=== PATIENT | female | born 1990 | race Two or more races ===

== ENCOUNTER 2016-12-08 13:20 | Emergency (ER) | payer OTHER ==
[2016-12-08 13:24] VITALS: BP 124/83; PULSE 68; TEMP 98.2; BMI 20.8
--- NOTE | 2016-12-08 14:48 | PDOC ---
History of Present Illness - General Chief Complaint: Wound Stated Complaint: VAGINAL PROBLEM/BOIL Time Seen by Provider: 12/08/16 13:31 History Source: Patient Exam Limitations: No Limitations - History of Present Illness Initial Comments: 12/08/16 15:07 Patient is a 26 y/o female, no significant medical history. Present to the ER with painful mass to the left side of her vagina. Patient reports that she had this mass for three years since the of her daughter. Recently increased in size. No fever, pain is 5/10. Past Medical History: Denies. Allergies: No known allergies Medications: None Family History: Non-contributory Social History: Denies smoking, alcohol use, or IVDU Review of Systems GENERAL/CONSTITUTIONAL: No fever or chills. No weakness. No weight change. HEAD, EYES, EARS, NOSE AND THROAT: No change in vision. No ear pain or discharge. No sore throat. CARDIOVASCULAR: No chest pain or shortness of breath. RESPIRATORY: No cough, wheezing, or hemoptysis. GASTROINTESTINAL: No nausea, vomiting, diarrhea or constipation. No rectal bleeding. GENITOURINARY: No dysuria, frequency, or change in urination. MUSCULOSKELETAL: No joint or muscle swelling or pain. No neck or back pain. SKIN : No rash or easy bruising. Painful palpable mass to the right vulva. Physical Exam: GENERAL: The patient is awake, alert, and fully oriented, in no acute distress. LUNGS: Breath sounds equal, clear to auscultation bilaterally. No wheezes, and no crackles. HEART: Regular rate and rhythm, normal S1 and S2 without murmur, rub or gallop. ABDOMEN: Soft, nontender, normoactive bowel sounds. No guarding, no rebound. No masses. No bruising or abrasions MUSCULOSKELETAL: Normal range of motion, no edema. No clubbing or cyanosis. No cords, erythema, or tenderness. No CVA Tenderness SKIN: [Warm, Dry, normal turgor, no rashes or lesions noted. Painful palpable mass to right vulva, consistent with Bartholin's cyst measuring approximate 7 cm in length and 6 cm in width. Area is not cellulitic. Painful to touch. Past History - Past Medical History Allergies/Adverse Reactions: Allergies Allergy/AdvReac Type Severity Reaction Status Date / Time No Known Allergies Allergy Verified 12/08/16 13:24 Home Medications: Ambulatory Orders Ibuprofen [Motrin] 400 mg PO TID #20 tablet 07/01/15 Clindamycin [Cleocin -] 300 mg PO TID #21 capsule 12/08/16 Oxycodone HCl/Acetaminophen [Percocet 5-325 mg Tablet] 1 tab PO Q6H #12 tablet MDD 4 12/08/16 Asthma: No Cancer: No Cardiac Disorders: No Diabetes: No HTN: No Seizures: No Thyroid Disease: No - Surgical History GI Surgery: Yes (umbilical hernia repair) - Reproductive History (#): 2 Para: 1 Cervical CA: No Dysfunctional Uterine Bleeding: No Ectopic : No Endometrial CA: No Polycystic Ovaries: No Therapeutic (s) & number: No Tubal Ligation: No Spontaneous : 0 - Immunization History Immunization Up to Date: Yes - Psycho/Social/Smoking Cessation Hx Anxiety: No Suicidal Ideation: No Smoking Status: Yes Smoking History: Never smoked Number of Cigarettes Smoked Daily: 0 Information on smoking cessation initiated: No Hx Alcohol Use: No Drug/Substance Use Hx: No Substance Use Type: None Hx Substance Use Treatment: No *Physical Exam - Vital Signs Last Vital Signs Temp Pulse Resp BP Pulse Ox 98.2 F 68 18 124/83 98 12/08/16 13:22 12/08/16 13:22 12/08/16 13:22 12/08/16 13:22 12/08/16 13:22 Procedures - Incision and Drainage I&D Site: Right: Bartholin Betadine cleansed: Yes Anesthesia: 1% Lidocaine Volume(ml): 3 Blade Size: 11 Attempts: 1 (area cleansed sterilely with Betadine, anesthetized using 1% lidocaine with good result. Small 1 cm incision made at the base of Bartholin's , Carrasco catheter inserted with good result. Approximately 47 mL of pustulant drainage was removed and culture was sent.) Medical Decision Making - Medical Decision Making 12/08/16 15:25 A/P: Patient with Bartholin's cyst, the procedure note. Called Dr. Villegas, patient to be seen at 11 AM tomorrow, wound culture sent, Clindamycin ordered, Percocet for pain I discussed the physical exam findings, ancillary test results and final diagnoses with the patient. I answered all of the patient's questions. The patient was satisfied with the care received and felt comfortable with the discharge plan and treatment plan. The patient will call follow-up and will return to the Emergency Department with any new, persistent or worsening symptoms. *DC/Admit/Observation/Transfer Diagnosis at time of Disposition: Bartholin cyst - Discharge Dispostion Admit: No - Prescriptions Prescriptions: Clindamycin [Cleocin -] 300 mg PO TID #21 capsule Oxycodone HCl/Acetaminophen [Percocet 5-325 mg Tablet] 1 tab PO Q6H #12 tablet MDD 4 - Referrals Referrals: Manfred Hartley MD [Primary Care Provider] - Sanford Villegas MD [Staff Physician] - (Tomorrow see Nadiya MAHAJAN [address] [facility] [phone] 11 am) - Patient Instructions Printed Discharge Instructions: Bartholin Gland Cyst Additional Instructions: 47 cc of pustulent drainage. Word Catheter inserted Culture sent Started on Clindamycin Started as the size of an egg.
== END 2016-12-08 15:04 | disposition home or self-care (01) ==
LOC: JERFT 13:20
PROC: 0U9LX0Z Drainage of Vestibular Gland with Drainage Device, External Approach (ICD-10-PCS; principal; 2016-12-08)
DX: N75.0 Cyst of Bartholin's gland (principal)
CPT/HCPCS: 87070; 87077; 87205; 99281-25

== ENCOUNTER 2018-05-26 15:05 | Emergency (ER) | payer OTHER ==
[2018-05-26 15:30] VITALS: BP 116/72; PULSE 98; TEMP 98.8; BMI 19.7
--- NOTE | 2018-05-26 15:42 | PDOC ---
History of Present Illness - General Chief Complaint: Cold Symptoms Stated Complaint: EARACHE, THROAT PAIN Time Seen by Provider: 05/26/18 15:32 History Source: Patient - History of Present Illness Initial Comments: 05/26/18 16:34 27 year old female with throat pain left sided neck pain x 1 weeks. reports no relief with nyquil / dayquil. denies NVD, abdominal pain denies fever /chills Past History - Past Medical History Allergies/Adverse Reactions: Allergies Allergy/AdvReac Type Severity Reaction Status Date / Time No Known Allergies Allergy Verified 05/26/18 15:27 Home Medications: Ambulatory Orders Amoxicillin Suspension - 500 mg PO BID #120 ml 05/26/18 Asthma: No Cancer: No Cardiac Disorders: No COPD: No Diabetes: No HTN: No Seizures: No Thyroid Disease: No Other medical history: DENIES. - Surgical History GI Surgery: Yes (umbilical hernia repair) - Reproductive History (#): 2 Para: 1 Cervical CA: No Dysfunctional Uterine Bleeding: No Ectopic : No Endometrial CA: No Polycystic Ovaries: No Therapeutic (s) & number: No Tubal Ligation: No Spontaneous : 0 - Immunization History Immunization Up to Date: Yes - Suicide/Smoking/Psychosocial Hx Smoking Status: Yes Smoking History: Never smoked Number of Cigarettes Smoked Daily: 0 Hx Alcohol Use: No Drug/Substance Use Hx: No Substance Use Type: None Hx Substance Use Treatment: No Review of Systems - Review of Systems Able to Perform ROS?: Yes Is the patient limited Croatian proficient: No HEENTM: Yes: Nose Congestion, Throat Pain, Difficulty Swallowing. No: Symptoms Reported, See HPI, Eye Pain, Blurred Vision, Tearing, Recent change in vision, Double Vision, Cataracts, Ear Pain, Ocular Prothesis, Ear Discharge, Nose Pain, Tinnitus, Nose Bleeding, Hearing Loss, Throat Swelling, Mouth Pain, Dental Problems, Mouth Swelling, Other Respiratory: No: Symptoms reported, See HPI, Cough, Orthopnea, Shortness of Breath, SOB with Exertion, SOB at Rest, Stridor, Wheezing, Productive cough, Hemoptysis, Other *Physical Exam - Vital Signs Last Vital Signs Temp Pulse Resp BP Pulse Ox 98.8 F 98 H 19 116/72 97 05/26/18 15:27 05/26/18 15:27 05/26/18 15:27 05/26/18 15:27 05/26/18 15:27 - Physical Exam General Appearance: Yes: Appropriately Dressed HEENT: positive: Other (b/l tonsillar erythema left worse than right) Moderate Sedation - Procedure Monitoring Vital Signs: Procedure Monitoring Vital Signs Temperature 98.8 F 05/26/18 15:27 Pulse Rate 98 H 05/26/18 15:27 Respiratory Rate 19 05/26/18 15:27 Blood Pressure 116/72 05/26/18 15:27 O2 Sat by Pulse Oximetry (%) 97 05/26/18 15:27 *DC/Admit/Observation/Transfer Diagnosis at time of Disposition: Strep pharyngitis - Discharge Dispostion Disposition: HOME - Prescriptions Prescriptions: Amoxicillin Suspension - 500 mg PO BID #120 ml - Referrals Referrals: Estefany Blue MD [Primary Care Provider] - Joe Collier MD [Staff Physician] - Call tomorrow - Patient Instructions Printed Discharge Instructions: Strep Throat Additional Instructions: Drink plenty of fluids Gargle with warm salty water Take amoxicillin as prescribed Take ibuprofen every 6 hours as needed for pain You are considered contagious for the first 24 hours after treatment. Throw away your toothbrush in 3-4 days and do not share your drinks and utensils with others. - Post Discharge Activity Forms/Work/School Notes: Back to Work
[2018-05-26] MEDS ORDERED: IBUPROFEN 100 MG/5 ML UNIT DOSE CUPS PO ONE (15:58)
[2018-05-26] MEDS ORDERED: DEXAMETHASONE LIQUID 0.5 MG/5 ML 240 ML BULK BOTTLE PO ONE (15:58)
[2018-05-26] MEDS ORDERED: DEXAMETHASONE SOD PHOSPHATE 10 MG/1 ML VIAL ONE (16:01)
[2018-05-26] MEDS ORDERED: IBUPROFEN 100 MG/5 ML UNIT DOSE CUPS ONE (16:01)
== END 2018-05-26 16:46 | disposition home or self-care (01) ==
LOC: JERFT 15:05
DX: J02.0 Streptococcal pharyngitis (principal)
CPT/HCPCS: 87880; 99281-25